=== PATIENT | male | born 1990 | race Caucasian/White ===

== ENCOUNTER 2022-11-08 07:58 | Emergency (ER) | payer SELFPAY ==
[~2022-11-08 07:58] MED LIST: KEFLEX500 MG PO; MOTRIN800 MG PO
== END 2022-11-08 08:30 | disposition left against medical advice (07) ==
LOC: ED 07:58
DX: S01.01XA Laceration without foreign body of scalp, initial encounter (principal); F43.0 Acute stress reaction; F10.129 Alcohol abuse with intoxication, unspecified; Y90.9 Presence of alcohol in blood, level not specified; W22.8XXA Striking against or struck by other objects, initial encounter; Y93.89 Activity, other specified; Y92.89 Other specified places as the place of occurrence of the external cause; Y99.8 Other external cause status